=== PATIENT | male | born 1980 | race Caucasian/White ===

== ENCOUNTER 2021-07-18 09:05 | Observation (INO) ==
[2021-07-18 09:38] LABS: Basophils % 0.6 %; Eosinophils # 0.1 K/mcL (0.0-0.6); Eosinophils % 2.5 %; Hematocrit 41.5 % (37.5-50.1); Hemoglobin 13.2 g/dL (12.9-16.9); Immature Granulocytes % 0.6 % (0-4); Lymphocytes # 1.1 K/mcL (0.6-4.6); Lymphocytes % 23.1 %; Mean Corpuscular HGB Conc 31.8 g/dL (31.6-35.5); Mean Corpuscular Hemoglobin 25.6 pg (28.0-33.3); Mean Corpuscular Volume 80.6 fL (83.0-100.0); Mean Platelet Volume 9.3 fL (9.4-12.4); Monocytes # 0.8 K/mcL (0.0-1.3); Neutrophils # 2.7 K/mcL (1.6-8.9); Platelet Count 184 K/mcL (140-400); Red Blood Count 5.15 M/mcL (4.19-5.50); Red Cell Distribution Width 15.9 % (11.5-14.5); Segmented Neutrophils % 56.2 %; White Blood Count 4.8 K/mcL (4.3-11.1)
[2021-07-18] MEDS ORDERED: Nitroglycerin 0.4 MG TAB.SUBL SL STA (09:58)
[2021-07-18] MEDS ORDERED: Aspirin 325 MG TABLET PO ONE (09:58)
[2021-07-18 10:03] LABS: BUN/Creatinine Ratio 20 (6-26); Blood Urea Nitrogen 19 mg/dL (6-20); Calcium 8.8 mg/dL (8.6-10.3); Carbon Dioxide 30 mEq/L (23-29); Chloride 100 mEq/L (98-107); Glucose 209 mg/dL (70-105); Osmolality,Calculated 296 (280-300); Potassium 4.1 mEq/L (3.5-5.1); Sodium 139 mEq/L (136-145); Troponin I < 0.03 ng/mL (< 0.04); eGFR For African Americans > 60 (> 60); eGFR For Non-African Americans > 60 (> 60)
[2021-07-18 10:59] LABS: Activated Partial Thrombo Time 32.7 Seconds (26.0-36.0); INR 1.1; Prothrombin Time 12.2 Seconds (9.4-12.1)
[2021-07-18] MEDS ORDERED: Perflutren Lipid Microsphere 1.3 ML in 0.9 % Sodium Chloride 8.7 ML IVP PRN (12:00)
[2021-07-18] MEDS ORDERED: Ondansetron 4 MG/2 ML VIAL IVP PRN (13:08)
[2021-07-18] MEDS ORDERED: Melatonin 3 MG TABLET PO PRN (13:08)
[2021-07-18] MEDS ORDERED: Naloxone 0.4 MG/ML INJ IVP PRN (13:08)
[2021-07-18] MEDS ORDERED: Acetaminophen 325 MG TABLET PO PRN (13:08)
[2021-07-18] MEDS ORDERED: Dextrose 4 GM Chewable Tablets PO PRN ×2 (13:10)
[2021-07-18] MEDS ORDERED: *HR* Dextrose 50 % in Water (Syg) 50 ML SYRINGE IVP PRN (13:10)
[2021-07-18] MEDS ORDERED: D5% in Water 1,000 ML IVC PRN (13:10)
[2021-07-18] MEDS: *HR* Heparin 5,000 UNIT/ML VIAL SQ SCH (16:12)
[2021-07-18] MEDS: Insulin LISPRO 300 UNITS/3 ML VIAL SUBQ SCH ×2 (16:12→20:20)
[2021-07-18] MEDS: Gabapentin 400 MG CAPSULE PO SCH ×2 (17:26→20:29)
[2021-07-19 05:18] LABS: Basophils % 0.7 %; Eosinophils # 0.1 K/mcL (0.0-0.6); Eosinophils % 2.6 %; Hematocrit 39.3 % (37.5-50.1); Hemoglobin 12.7 g/dL (12.9-16.9); Immature Granulocytes % 0.5 % (0-4); Lymphocytes # 1.4 K/mcL (0.6-4.6); Mean Corpuscular HGB Conc 32.3 g/dL (31.6-35.5); Mean Corpuscular Hemoglobin 25.8 pg (28.0-33.3); Mean Corpuscular Volume 79.7 fL (83.0-100.0); Mean Platelet Volume 9.6 fL (9.4-12.4); Monocytes # 0.7 K/mcL (0.0-1.3); Monocytes % 17.3 %; Platelet Count 176 K/mcL (140-400); Red Blood Count 4.93 M/mcL (4.19-5.50); Red Cell Distribution Width 15.8 % (11.5-14.5); Segmented Neutrophils % 45.9 %; White Blood Count 4.3 K/mcL (4.3-11.1)
[2021-07-19 05:41] LABS: Alanine Aminotransferase 26 Units/L (7-52); Albumin 3.8 g/dL (3.5-5.7); Albumin/Globulin Ratio 1.4 (1.1-2.2); Alkaline Phosphatase 48 Units/L (34-104); Aspartate Amino Transferase 17 Units/L (13-39); BUN/Creatinine Ratio 21 (6-26); Bilirubin,Total 0.8 mg/dL (0.3-1.0); Blood Urea Nitrogen 15 mg/dL (6-20); Calcium 8.5 mg/dL (8.6-10.3); Carbon Dioxide 28 mEq/L (23-29); Chloride 102 mEq/L (98-107); Chol/HDL Ratio 4.3 (0-4.9); Cholesterol 124 mg/dL (< 200); Globulin 2.7 g/dL (2.4-3.5); Glucose 149 mg/dL (70-105); HDL Cholesterol 29 mg/dL (40-59); LDL Cholesterol,Calculated 59 mg/dL (< 100); Osmolality,Calculated 292 (280-300); Potassium 3.7 mEq/L (3.5-5.1); Sodium 139 mEq/L (136-145); Total Protein 6.5 g/dL (6.4-8.9); Triglycerides 181 mg/dL (< 150); eGFR For African Americans > 60 (> 60); eGFR For Non-African Americans > 60 (> 60)
[2021-07-19 05:50] LABS: Estimated Average Glucose 146 mg/dl; Hemoglobin A1C 6.7 %
[2021-07-19] MEDS ORDERED: Regadenoson 0.4 MG/5 ML SYRINGE IVP ONE (06:03)
[2021-07-19] MEDS: Insulin LISPRO 300 UNITS/3 ML VIAL SUBQ SCH ×4 (07:35→20:52)
[2021-07-19] MEDS: *HR* Heparin 5,000 UNIT/ML VIAL SQ SCH ×2 (07:35→17:17)
[2021-07-19] MEDS ORDERED: atenoloL 25 MG TABLET PO SCH (09:00)
[2021-07-19] MEDS ORDERED: Metoprolol XL (24 HR) Succ 25 MG TAB.ER.24H PO SCH (09:00)
[2021-07-19] MEDS: amLODIPine 5 MG TABLET PO SCH (09:52)
[2021-07-19] MEDS: Metoprolol XL (24 HR) Succ 50 MG TAB.ER.24H PO SCH (09:52)
[2021-07-19] MEDS: Gabapentin 400 MG CAPSULE PO SCH ×3 (09:52→20:48)
[2021-07-19] MEDS: Aspirin 81 MG TAB.CHEW PO SCH (09:52)
[2021-07-19] MEDS: Ascorbic Acid 500 MG TABLET PO SCH (09:53)
[2021-07-19] MEDS: Cyanocobalamin (B-12) 1,000 MCG TABLET PO SCH (09:53)
[2021-07-19] MEDS: allopurinoL 300 MG TABLET PO SCH (09:53)
[2021-07-20] MEDS: *HR* Heparin 5,000 UNIT/ML VIAL SQ SCH ×2 (06:04→16:39)
[2021-07-20] MEDS: Insulin LISPRO 300 UNITS/3 ML VIAL SUBQ SCH ×4 (07:53→21:10)
[2021-07-20] MEDS: Metoprolol XL (24 HR) Succ 50 MG TAB.ER.24H PO SCH (08:12)
[2021-07-20] MEDS: Ascorbic Acid 500 MG TABLET PO SCH (08:12)
[2021-07-20] MEDS: amLODIPine 5 MG TABLET PO SCH (08:12)
[2021-07-20] MEDS: Gabapentin 400 MG CAPSULE PO SCH ×3 (08:12→22:03)
[2021-07-20] MEDS: Cyanocobalamin (B-12) 1,000 MCG TABLET PO SCH (08:13)
[2021-07-20] MEDS: allopurinoL 300 MG TABLET PO SCH (08:13)
[2021-07-20] MEDS: Aspirin 81 MG TAB.CHEW PO SCH (08:13)
[2021-07-20 09:49] LABS: Basophils % 0.6 %; Eosinophils # 0.1 K/mcL (0.0-0.6); Eosinophils % 2.1 %; Hematocrit 42.5 % (37.5-50.1); Hemoglobin 13.5 g/dL (12.9-16.9); Immature Granulocytes % 0.4 % (0-4); Lymphocytes # 1.2 K/mcL (0.6-4.6); Lymphocytes % 25.3 %; Mean Corpuscular HGB Conc 31.8 g/dL (31.6-35.5); Mean Corpuscular Hemoglobin 25.5 pg (28.0-33.3); Mean Corpuscular Volume 80.2 fL (83.0-100.0); Mean Platelet Volume 9.7 fL (9.4-12.4); Monocytes # 0.9 K/mcL (0.0-1.3); Neutrophils # 2.5 K/mcL (1.6-8.9); Platelet Count 207 K/mcL (140-400); Red Cell Distribution Width 15.9 % (11.5-14.5); Segmented Neutrophils % 52.6 %; White Blood Count 4.8 K/mcL (4.3-11.1)
[2021-07-20 10:11] LABS: BUN/Creatinine Ratio 20 (6-26); Blood Urea Nitrogen 16 mg/dL (6-20); Calcium 9.2 mg/dL (8.6-10.3); Carbon Dioxide 26 mEq/L (23-29); Chloride 101 mEq/L (98-107); Glucose 189 mg/dL (70-105); Osmolality,Calculated 290 (280-300); Sodium 137 mEq/L (136-145); eGFR For African Americans > 60 (> 60); eGFR For Non-African Americans > 60 (> 60)
[2021-07-20] MEDS: Isosorbide MONOnitrate (24 HR) 30 MG TAB.ER.24H PO SCH (13:44)
[2021-07-20] MEDS ORDERED: *HR* Heparin 10,000 UNIT/10 ML VIAL ONE (16:13)
[2021-07-20] MEDS ORDERED: Heparin 1,000 UNITS/500 mL 500 ML ONE (16:13)
[2021-07-20] MEDS ORDERED: 0.9 % Sodium Chloride 2,000 ML ONE (16:13)
[2021-07-20] MEDS ORDERED: ISOVUE-370 200 ML INFUS..BTL ONE (16:13)
[2021-07-20] MEDS ORDERED: Nitroglycerin 1,000 MCG/5 ML VIAL IV ONE (16:13)
[2021-07-20] MEDS ORDERED: *HR* Midazolam HCl 2 MG/2 ML VIAL ONE (18:18)
[2021-07-20] MEDS ORDERED: *HR* FentaNYL (PF) 100 MCG/2 ML VIAL ONE (18:18)
[2021-07-21] MEDS: *HR* Heparin 5,000 UNIT/ML VIAL SQ SCH (07:24)
[2021-07-21] MEDS: Metoprolol XL (24 HR) Succ 50 MG TAB.ER.24H PO SCH (08:30)
[2021-07-21] MEDS: Isosorbide MONOnitrate (24 HR) 30 MG TAB.ER.24H PO SCH (08:31)
[2021-07-21] MEDS: Ascorbic Acid 500 MG TABLET PO SCH (08:32)
[2021-07-21] MEDS: allopurinoL 300 MG TABLET PO SCH (08:32)
[2021-07-21] MEDS: amLODIPine 5 MG TABLET PO SCH (08:32)
[2021-07-21] MEDS: Cyanocobalamin (B-12) 1,000 MCG TABLET PO SCH (08:32)
[2021-07-21] MEDS: Gabapentin 400 MG CAPSULE PO SCH (08:32)
[2021-07-21] MEDS: Aspirin 81 MG TAB.CHEW PO SCH (08:32)
[2021-07-21] MEDS: Insulin LISPRO 300 UNITS/3 ML VIAL SUBQ SCH (08:33)
[2021-07-21 10:53] VITALS: BP 126/79; PULSE 93; TEMP 98.4; O2SAT 93
[2021-07-23] MEDS ORDERED: Ergocalciferol (VIT D2) 50,000 UNIT (1.25MG) CAP PO SCH (09:00)
== END 2021-07-21 12:23 | disposition home or self-care (01) ==
LOC: 3BNU 09:05 → EMEROOARM 09:05 → SUATTDRO 12:20 → 3BNU 13:10
PROVIDERS: ADMIT Student in an Organized Health Care Education/Training Program; ATTEND Registered Nurse

== ENCOUNTER 2021-08-08 04:54 | Observation (INO) ==
[2021-08-08] MEDS ORDERED: 0.9 % Sodium Chloride 1,000 ML IVC ONE (05:21)
[2021-08-08 06:24] LABS: Basophils % 0.3 %; Eosinophils # 0.1 K/mcL (0.0-0.6); Eosinophils % 0.8 %; Hematocrit 37.9 % (37.5-50.1); Hemoglobin 12.1 g/dL (12.9-16.9); Immature Granulocytes % 0.9 % (0-4); Lymphocytes # 0.9 K/mcL (0.6-4.6); Lymphocytes % 13.2 %; Mean Corpuscular HGB Conc 31.9 g/dL (31.6-35.5); Mean Corpuscular Volume 81.3 fL (83.0-100.0); Monocytes # 1.2 K/mcL (0.0-1.3); Monocytes % 17.6 %; Neutrophils # 4.4 K/mcL (1.6-8.9); Platelet Count 199 K/mcL (140-400); Red Blood Count 4.66 M/mcL (4.19-5.50); Red Cell Distribution Width 16.7 % (11.5-14.5); Segmented Neutrophils % 67.2 %; White Blood Count 6.6 K/mcL (4.3-11.1)
[2021-08-08 06:25] LABS: Influenza A PCR Negative (Negative); Influenza B PCR Negative (Negative); Resp. Syncytial Virus PCR Negative (Negative)
[2021-08-08 06:26] LABS: SARS-CoV-2 by PCR (In House) Negative (Negative)
[2021-08-08 06:32] LABS: INR 1.2; Prothrombin Time 13.9 Seconds (9.4-12.1)
[2021-08-08 06:35] LABS: Activated Partial Thrombo Time 29.7 Seconds (26.0-36.0)
[2021-08-08 07:00] LABS: Alanine Aminotransferase 16 Units/L (7-52); Albumin 4.1 g/dL (3.5-5.7); Albumin/Globulin Ratio 1.3 (1.1-2.2); Alkaline Phosphatase 53 Units/L (34-104); Aspartate Amino Transferase 18 Units/L (13-39); BUN/Creatinine Ratio 18 (6-26); Bilirubin,Direct 0.1 mg/dL (0.0-0.2); Bilirubin,Indirect 1.1 mg/dL (0.0-1.0); Bilirubin,Total 1.2 mg/dL (0.3-1.0); Blood Urea Nitrogen 16 mg/dL (6-20); Calcium 9.8 mg/dL (8.6-10.3); Carbon Dioxide 28 mEq/L (23-29); Chloride 102 mEq/L (98-107); Globulin 3.2 g/dL (2.4-3.5); Glucose 185 mg/dL (70-105); Osmolality,Calculated 292 (280-300); Potassium 4.4 mEq/L (3.5-5.1); Sodium 138 mEq/L (136-145); Total Protein 7.3 g/dL (6.4-8.9); Troponin I 0.03 ng/mL (< 0.04); eGFR For African Americans > 60 (> 60); eGFR For Non-African Americans > 60 (> 60)
[2021-08-08] MEDS ORDERED: Isovue-370 500 ML BOTTLE IVP ONE (07:09)
[2021-08-08] MEDS ORDERED: Ondansetron ODT 4 MG TAB.RAPDIS SL PRN (09:06)
[2021-08-08] MEDS ORDERED: Mag Hydrox/Al Hydrox/Simeth 30 ML UDC PO PRN (09:06)
[2021-08-08] MEDS ORDERED: Naloxone 0.4 MG/ML INJ IVP PRN (09:06)
[2021-08-08] MEDS ORDERED: Melatonin 3 MG TABLET PO PRN (09:06)
[2021-08-08] MEDS ORDERED: Ipratropium/Albuterol Neb 3 ML IH PRN (09:09)
[2021-08-08] MEDS ORDERED: Dextrose 4 GM Chewable Tablets PO PRN ×2 (09:46)
[2021-08-08] MEDS ORDERED: D5% in Water 1,000 ML IVC PRN (09:46)
[2021-08-08] MEDS ORDERED: *HR* Dextrose 50 % in Water (Syg) 50 ML SYRINGE IVP PRN (09:46)
[2021-08-08 10:31] LABS: Adenovirus Not Detected (Not Detect); Bordetella Pertussis Not Detected (Not Detect); Chlamydophila pneumoniae Not Detected (Not Detect); Coronavirus 229E Not Detected (Not Detect); Coronavirus HKU1 Not Detected (Not Detect); Coronavirus NL63 Not Detected (Not Detect); Coronavirus OC43 Not Detected (Not Detect); Human Metapneumovirus Not Detected (Not Detect); Human Rhinovirus/Enterovirus Not Detected (Not Detect); Influenza A Subtype 2009 H1 Not Detected (Not Detect); Influenza B Not Detected (Not Detect); Mycoplasma pneumoniae Not Detected (Not Detect); Parainfluenza Virus 1 Not Detected (Not Detect); Parainfluenza Virus 2 Not Detected (Not Detect); Parainfluenza Virus 3 Not Detected (Not Detect); Parainfluenza Virus 4 Not Detected (Not Detect); Respiratory Syncytial Virus Not Detected (Not Detect); SARS-CoV-2 Not Detected (Not Detect)
[2021-08-08] MEDS: cefTRIAXone 1,000 MG in 0.9 % Sodium Chloride 10 ML IVP SCH (12:12)
[2021-08-08] MEDS: Insulin LISPRO 300 UNITS/3 ML VIAL SUBQ SCH ×2 (12:12→15:36)
[2021-08-08] MEDS: Azithromycin 500 MG in 0.9 % Sodium Chloride 250 ML IVPB SCH (12:13)
[2021-08-08] MEDS: Gabapentin 400 MG CAPSULE PO SCH (20:33)
[2021-08-08] MEDS ORDERED: Insulin LISPRO 300 UNITS/3 ML VIAL SUBQ SCH (21:00)
[2021-08-09 07:33] LABS: BUN/Creatinine Ratio 16 (6-26); Blood Urea Nitrogen 14 mg/dL (6-20); Calcium 9.4 mg/dL (8.6-10.3); Carbon Dioxide 26 mEq/L (23-29); Chloride 102 mEq/L (98-107); Glucose 183 mg/dL (70-105); Osmolality,Calculated 291 (280-300); Sodium 138 mEq/L (136-145); eGFR For African Americans > 60 (> 60); eGFR For Non-African Americans > 60 (> 60)
[2021-08-09 07:46] LABS: Hemoglobin 11.9 g/dL (12.9-16.9); Lymphocytes # 1.1 K/mcL (0.6-4.6); Mean Corpuscular HGB Conc 31.3 g/dL (31.6-35.5); Mean Corpuscular Hemoglobin 25.5 pg (28.0-33.3); Mean Corpuscular Volume 81.5 fL (83.0-100.0); Mean Platelet Volume 9.6 fL (9.4-12.4); Platelet Count 200 K/mcL (140-400); Red Blood Count 4.66 M/mcL (4.19-5.50); Red Cell Distribution Width 16.4 % (11.5-14.5); White Blood Count 5.6 K/mcL (4.3-11.1)
[2021-08-09 07:51] VITALS: BP 161/90; PULSE 86; TEMP 98.3; O2SAT 94
[2021-08-09] MEDS: Gabapentin 400 MG CAPSULE PO SCH (08:45)
[2021-08-09] MEDS: cefTRIAXone 1,000 MG in 0.9 % Sodium Chloride 10 ML IVP SCH (08:50)
[2021-08-09] MEDS: Insulin LISPRO 300 UNITS/3 ML VIAL SUBQ SCH (08:57)
[2021-08-09] MEDS ORDERED: Ascorbic Acid 500 MG TABLET PO SCH (09:00)
[2021-08-09] MEDS ORDERED: Cyanocobalamin (B-12) 1,000 MCG TABLET PO SCH (09:00)
[2021-08-09] MEDS ORDERED: lisinopriL 20 MG TABLET PO SCH (09:00)
[2021-08-09] MEDS ORDERED: allopurinoL 300 MG TABLET PO SCH (09:00)
[2021-08-09] MEDS ORDERED: Aspirin 81 MG TAB.CHEW PO SCH (09:00)
[2021-08-09] MEDS ORDERED: Metoprolol XL (24 HR) Succ 25 MG TAB.ER.24H PO SCH (09:00)
[2021-08-09 09:18] LABS: Monocytes # 1.4 K/mcL (0.0-1.3); Neutrophils # 3.1 K/mcL (1.6-8.9); Platelet Estimate Normal (Normal)
[2021-08-09 09:22] LABS: Anisocytosis 1+ (Not Present); Polychromasia 1+ (Not Present)
[2021-08-09] MEDS: Azithromycin 500 MG in 0.9 % Sodium Chloride 250 ML IVPB SCH (09:52)
== END 2021-08-09 12:45 | disposition home or self-care (01) ==
LOC: 3ANU 04:54 → EMEROOARM 04:54 → 3ANU 10:19
PROVIDERS: ADMIT Family Medicine; ATTEND Family Medicine